=== PATIENT | female | born 1975 | race Hispanic/Latino ===

== ENCOUNTER 2017-11-18 14:51 | Emergency (ER) | payer OTHER ==
[~2017-11-18] VITALS: Ht 157.5 cm; Wt 68.0 kg
== END 2017-11-18 17:59 | disposition left against medical advice (07) ==
LOC: ER 14:51
DX: I10 Essential (primary) hypertension (principal)

== ENCOUNTER 2017-11-19 09:34 | Emergency (ER) | payer OTHER ==
[~2017-11-19] VITALS: Ht 157.5 cm; Wt 68.0 kg
--- OUTSIDE RECORDS SUMMARY | 2017-11-19 09:37 | XMS REPORT | Continuity of Care Document ---
Author Author [facility] Organization [facility] Address [address] [place] [address] Phone Unavailable Care Team Providers Care Housecleaner Floor Name Role Phone KINSEY ROB PCP Advance Directives Directive Response Recorded Date/Time Does the patient have an advance directive? No 11/18/17 3:56pm If yes, is advance directive on file with [facility]? No 11/18/17 3:56pm If not on file with [facility] will patient provide a copy? No 11/18/17 3:56pm Do you have a Directive to Physician? No 11/18/17 3:56pm Do you have a Medical Power of [employer]? No 11/18/17 3:56pm Do you have an out of hospital Do Not Resuscitate Order? No 11/18/17 3:56pm Do you have any special needs we should be aware of? No 11/18/17 3:56pm Do you have a support person here with you today? Yes 11/18/17 3:56pm Did patient receive Notice of Privacy Practices? Yes 11/18/17 3:56pm Did patient receive patient rights and responsibilities? Yes 11/18/17 3:56pm Problems No problem information available. Medications No medication information available. Social History No social history information available. Hospital Discharge Instructions No hospital discharge instruction information available. Plan of Care Discharge Date 11/18/17 5:59pm Disposition AGAINST MEDICAL ADVICE Condition at Discharge Stable Forms Provided Work/School Excuse Prescriptions See Medication Section Referrals KINSEY ROB Address: [address] [place] [phone] Functional Status No functional status information available. Allergies, Adverse Reactions, Alerts No known allergies. Immunizations No immunization information available. Vital Signs Acute Vital Signs Vital Response Date/Time Height 5 ft 2 in 11/18/2017 3:35pm Weight 150 lb 11/18/2017 3:35pm Body Mass Index 27.4 kg/m^2 11/18/2017 3:35pm Results No relevant diagnostic test, laboratory data and/or discharge summary information available. Procedures No procedure information available. Encounters Encounter Location Arrival/Admit Date Discharge/Depart Date Attending Provider Departed Emergency Room [facility] 11/18/17 2:51pm 5:59pm ANIBAL GALINDO MD
[2017-11-19 10:52] LABS: BASOPHILS # (AUTO) 0.1 (0.0-0.1); BASOPHILS % 0.6 % (0.0-1.0); EOSINOPHILS # (AUTO) 0.2 (0.0-0.4); EOSINOPHILS % 2.3 % (0.0-6.0); HEMATOCRIT 42.2 % (34.2-44.1); HEMOGLOBIN 14.9 g/dL (12.0-16.0); LYMPHOCYTES # (AUTO) 3.7 (1.0-3.2); LYMPHOCYTES % 46.6 % (18.0-39.1); MEAN CORPUSCULAR HEMOGLOBIN 30.7 pg (28-32); MEAN CORPUSCULAR HGB CONC 35.3 g/dL (31-35); MONOCYTES # (AUTO) 0.3 (0.2-0.8); MONOCYTES % 4.3 % (4.4-11.3); NEUTROPHILS # (AUTO) 3.6 (2.1-6.9); NEUTROPHILS % 45.9 % (38.7-80.0); PLATELET COUNT 355 x10e3/uL (140-360); RED BLOOD COUNT 4.85 x10e6/uL (3.6-5.1); RED CELL DISTRIBUTION WIDTH 11.6 % (11.7-14.4)
[2017-11-19 11:06] LABS: ANION GAP 16.6 mmol/L (8-16); BLOOD UREA NITROGEN 10 mg/dL (7-26); BUN/CREATININE RATIO 13 (6-25); CALCIUM 9.3 mg/dL (8.4-10.2); CARBON DIOXIDE 23 mmol/L (22-29); CHLORIDE 102 mmol/L (98-107); CREATININE, SERUM 0.75 mg/dL (0.57-1.11); EST GLOMERULAR FILTRATION RATE > 60 ML/MIN (60-); GLUCOSE 140 mg/dL (74-118); POTASSIUM 3.6 mmol/L (3.5-5.1); SODIUM 138 mmol/L (136-145)
[2017-11-19 11:14] LABS: CREATINE KINASE MB 0.7 ng/mL (0-5.0)
[2017-11-19] MEDS ORDERED: NIFEDIPINE 10 MG CAP PO ONE (12:00)
[2017-11-19 13:38] VITALS: BP 157/86
== END 2017-11-19 13:57 | disposition home or self-care (01) ==
LOC: ER 09:34
DX: I10 Essential (primary) hypertension (principal)
CPT/HCPCS: 36415; 80048; 82550; 82553; 84484; 85025; 93005; 99284

== ENCOUNTER → 2019-09-17 | Outpatient (CLI) | payer OTHER ==
--- NOTE | 2019-09-17 12:57 | Diagnostic Imaging Report ---
Chest, PA and lateral. History: Chronic cough. Comparison: None available. Discussion: The cardiomediastinal silhouette and pulmonary vasculature are within normal limits. The lungs are clear without evidence of consolidation or effusion. There are no acute osseous abnormalities. IMPRESSION: No acute cardiopulmonary abnormality. Signed by: Chadwick Bliss MD on 09/17/2019 12:54 PM
== END ==
LOC: RAD 12:05
PROVIDERS: ATTEND Family Medicine
DX: R05 Cough (principal); K21.9 Gastro-esophageal reflux disease without esophagitis
CPT/HCPCS: 71046